=== PATIENT | female | born 1980 | race Caucasian/White ===

== ENCOUNTER 2016-12-08 23:05 | Emergency (ER) | payer BC, OTHER ==
[~2016-12-08] VITALS: Ht 167.6 cm; Wt 57.6 kg
--- NOTE | 2016-12-08 23:10 | NUR ---
36 YO FEMALE BB RA FROM HOME. PER EMS, BOYFRIEND CALLED 911. PT IS ALERT X 3, ADMITS TO ALCOHOL DRINKING. PT DS TO ER BED, SKIN WARM AND DRY, RR EVEN AND UNLABORED. 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 AWAITING ORDERS FROM PROVIDER
[2016-12-08] MEDS ORDERED: ONDANSETRON HCL/PF 4 MG/2 ML VIAL IVP ONE (23:30)
[2016-12-08] MEDS ORDERED: IV NS 0.9% 1,000 ML BAG IV ONE (23:30)
[2016-12-08 23:36] LABS: BASOPHILS % (AUTO) 0.6 % (0.0-2.0); EOSINOPHILS # (AUTO) 0.2 /CMM (0.0-0.7); EOSINOPHILS % (AUTO) 2.9 % (0.0-6.0); HEMATOCRIT 44 % (33-45); HEMOGLOBIN 15.1 g/dL (11.5-14.8); LYMPHOCYTES # (AUTO) 3.7 /CMM (0.8-4.8); LYMPHOCYTES % (AUTO) 48.2 % (20.0-44.0); MEAN CORPUSCULAR HEMOGLOBIN 31 PG (26.0-33.0); MEAN CORPUSCULAR HGB CONC 34 g/dl (31.0-36.0); MEAN CORPUSCULAR VOLUME 92 fL (82-100); MONOCYTES # (AUTO) 0.5 /CMM (0.1-1.30); MONOCYTES % (AUTO) 6.9 % (2.0-12.0); NEUTROPHILS # (AUTO) 3.2 /CMM (1.8-8.9); NEUTROPHILS % (AUTO) 41.4 % (43.0-81.0); PLATELET COUNT (AUTO) 275 /CMM (150-450); RDW COEFFICIENT OF VARIATION 11.9 (11.5-15.0); RED BLOOD CELL COUNT(AUTO) 4.82 MIL/uL (4.0-5.2); WHITE BLOOD COUNT (AUTO) 7.7 K/uL (4.3-11.0)
[2016-12-08 23:41] LABS: CALCIUM, SERUM 8.7 mg/dL (8.5-10.1); CREATININE 0.7 mg/dL (0.6-1.3); POTASSIUM 3.8 mmol/L (3.5-5.1)
[2016-12-08 23:51] LABS: ALBUMIN 4.2 g/dL (3.4-5.0); BILIRUBIN,DIRECT 0.1 mg/dL (0.0-0.2); BILIRUBIN,TOTAL 0.2 mg/dL (0.2-1.0); TOTAL PROTEIN, SERUM 7.6 g/dL (6.4-8.2)
[2016-12-09 00:03] LABS: SALICYLATE 1.9 mg/dL (2.8-20.0)
--- NOTE | 2016-12-09 02:35 | NUR ---
pt s/o at bedside. pt calm and cooperative at this time.
--- NOTE | 2016-12-09 04:45 | NUR ---
pt asleep, no acute distress noted, resp even and unlabored. pt s/o at bedside.
--- NOTE | 2016-12-09 07:51 | NUR ---
RN ART AT BEDSIDE FOR EVAL
[2016-12-09 07:56] VITALS: BP 120/78
--- NOTE | 2016-12-09 07:56 | NUR ---
Patient discharged to home in stable condition. Written and verbal after care instructions given. Patient verbalizes understanding of instruction.
== END 2016-12-09 07:57 | disposition home or self-care (01) ==
LOC: ER 23:06
DX: F10.129 Alcohol abuse with intoxication, unspecified (principal); T14.91XA Suicide attempt, initial encounter; F17.210 Nicotine dependence, cigarettes, uncomplicated; X83.8XXA Intentional self-harm by other specified means, initial encounter; Y93.89 Activity, other specified; Y92.89 Other specified places as the place of occurrence of the external cause; Y99.8 Other external cause status
CPT/HCPCS: 36415; 80048; 80076; 80305; 80329; 84703; 85025; 99284; 99406; A4606; G0480 ×2; J7042; Z7610